=== PATIENT | female | born 1985 | race American Indian/Alaskan Native ===

== ENCOUNTER 2017-07-16 16:36 | Emergency (ER) | payer MEDICAID ==
[2017-07-16 17:06] VITALS: RESP 16
[2017-07-16 17:07] VITALS: BMI 24.0
[2017-07-16 17:10] VITALS: TEMP 97.8
--- NOTE | 2017-07-16 17:21 | ED PDOC ---
Arrival/HPI - General Chief Complaint: Palpitations Time Seen by Provider: 07/16/17 17:16 Historian: Patient - History of Present Illness Narrative History of Present Illness (Text): 07/16/17 17:14 A 31 year old female, with no significant past medical history, presents to the emergency department complaining of palpitations s/p dental procedure by dentist. Patient reports towards end of procedure, began experiencing severe palpitations. Patient denies any fever/chills/sweats, chest pain, shortness of breath, diaphoresis, LOC, dizziness/lightheadedness, nausea, vomiting, or any other medical complaints at this time. pt is here for further eval PCP: Dr Mtathews Family hx: no family history of sudden no one in family requiring pacemaker/defibrillator at young age no acute DE in family less than 50 years of age. Time/Duration: Prior to Arrival Symptom Onset: Sudden Symptom Course: Improving Activities at Onset: Rest Context: Other (dental office) Past Medical History - Provider Review Nursing Documentation Reviewed: Yes - Travel History Have you recently traveled outside [place] w/in the past 3 mons?: No - Past History Past History: No Previous - Infectious Disease Hx of Infectious Diseases: None - Tetanus Immunization Tetanus Immunization: Unknown - Reproductive Menopause: No Currently : Unknown - Past Medical History Past Medical History: No Previous - Psychiatric Hx Substance Use: No Family/Social History - Physician Review Nursing Documentation Reviewed: Yes Family/Social History: No Known Family HX Smoking Status: Former Smoker Hx Alcohol Use: Yes Frequency of alcohol use: Socially Hx Substance Use: No Hx Substance Use Treatment: No Allergies/Home Meds Allergies/Adverse Reactions: Allergies No Known Allergies Allergy (Unverified 07/16/17 17:17) Review of Systems - Physician Review All systems were reviewed & negative as marked: Yes - Review of Systems Constitutional: absent: Fevers Eyes: Normal ENT: Normal Respiratory: absent: SOB Cardiovascular: Palpitations. absent: Chest Pain Gastrointestinal: absent: Nausea, Vomiting Genitourinary Female: Normal Musculoskeletal: Normal Skin: Normal Neurological: absent: Dizziness, Other (no LOC/lightheadedness) Endocrine: absent: Diaphoresis Hemo/Lymphatic: Normal Psychiatric: Normal Physical Exam Vital Signs Reviewed: Yes Vital Signs Temp Pulse Resp BP Pulse Ox 07/16/17 17:49 90 16 140/86 98 07/16/17 17:06 97.8 F 93 H 16 146/83 99 07/16/17 17:05 93 H 16 146/83 99 Temperature: Afebrile Blood Pressure: Hypertensive Pulse: Regular Respiratory Rate: Normal Appearance: Positive for: Well-Appearing, Non-Toxic, Uncomfortable, Other (alert /awake; GCS = 15, oriented x 3, uncomfortable, resting in bed, cooperative, NAD) Pain Distress: None Mental Status: Positive for: Alert and Oriented X 3 - Systems Exam Head: Present: Atraumatic, Normocephalic Pupils: Present: PERRL, Other (no nystagmus, no ) Extroacular Muscles: Present: EOMI Conjunctiva: Present: Normal Ears: Present: Normal Mouth: Present: Other (dry oral mucosa, right dental procedure with dry blood noted; no exudate/lesions/discharge noted, uvula/tongue are midline, no dysphonia) Pharnyx: Present: Normal Nose (External): Present: Atraumatic Nose (Internal): Present: Normal Inspection Neck: Present: Normal Range of Motion, Trachea Midline, Other (no step off, no nuchal rigidity, no meningeal signs, intact ROM). No: Meningeal Signs, MIDLINE TENDERNESS Respiratory/Chest: Present: Clear to Auscultation, Good Air Exchange, Other ( CTA b/l, no w/r/r, no accessory muscle use noted, no tachypenia). No: Respiratory Distress, Accessory Muscle Use Cardiovascular: Present: Regular Rate and Rhythm, Normal S1, S2. No: Murmurs Abdomen: Present: Normal Bowel Sounds, Other (well nourished female, no focal tenderness, no masses/rebound/guarding/rigidity, no bardales's sign, no mcburney' s point tenderness). No: Tenderness, Distention, Peritoneal Signs Back: Present: Normal Inspection, Other (no midline tenderness). No: CVA Tenderness, Midline Tenderness Upper Extremity: Present: Normal Inspection, Normal ROM, NORMAL PULSES, Neurovascularly Intact, Capillary Refill < 2s. No: Cyanosis, Edema Lower Extremity: Present: Normal Inspection, NORMAL PULSES, Normal ROM, Neurovascularly Intact. No: Edema Neurological: Present: GCS=15, CN II-XII Intact, Speech Normal Skin: Present: Warm, Dry, Normal Color, Other (cap refill < 1sec, no ulcerations , no petechiae, no rashes). No: Rashes Psychiatric: Present: Alert, Oriented x 3, Normal Insight, Normal Concentration Medical Decision Making ED Course and Treatment: 07/16/17 17:10 Impression: palpitations i have consider all the differential diagnosis regarding pt's chief medical complaints/clinical findings, including but are not limited to: palpitations s/ p dental procedure A/P: palpitations - labs - ekg - supportive care - observe/reevaluation 07/16/17 17:15 I Spoke to the dentists, Dr Alejo (?), pt was given 1.7 cc x 3 episodes of lidocaine with epi for anesthesia during dental procedure; towards the end of the procedure, pt felt her symptoms of severe palpitations ~ 4pm; no other complaints noted; NO rashes/dysphonia/stridor noted 07/16/17 18:05 pt is currently comfortable pt is not in any distress pt denied palpitations noted 07/16/17 18:32 pt is doing well pt is made aware of her medical results pt is encouraged no caffiene products pt is encouraged soft/liquid diet for now until directed by dentists pt will f/u as directed pt will be discharged home Re-evaluation Time: 18:05 Reassessment Condition: Improved - Lab Interpretations Narrative Lab Interpretation (Text): 07/16/17 18:06 pt refused CBC currently I have reviewed the lab results: Yes Interpretation: All labs normal (slightly low FS) - EKG Interpretation EKG Interpretation (Text): 07/16/17 18:06 NSR at 85 bpm, normal axis, no ectopy, inverted T in leads V1, no st changes, NORMAL EKG otherwise; no old ekg to compare with Interpreted by ED Physician: Yes Type: 12 lead EKG Comparison: No previous EKG avail. - Medication Orders Current Medication Orders: Discontinued Medications Acetaminophen (Tylenol 325mg Tab) 650 mg PO STAT STA Stop: 07/16/17 18:04 Last Admin: 07/16/17 18:30 Dose: 650 mg MAR Pain/Vitals Document 07/16/17 18:30 MS (Rec: 07/16/17 18:30 MS [id number]) Pain Reassessment Is This A Pain ReAssessment? No Presence of Pain Presence of Pain Yes Pain Scale Used Pain Scale Used Numeric Location Pain Location Body Site Jaw Intensity 9 Codeine Sulfate (Codeine) 30 mg PO ONCE ONE Stop: 07/16/17 18:02 Last Admin: 07/16/17 18:28 Dose: 30 mg MATT Pain Assessment Document 07/16/17 18:28 MS (Rec: 07/16/17 18:30 MS [id number]) Pain Reassessment Is this a pain reassessment? No Sleep Is patient sleeping during reassessment? No Presence of Pain Presence of Pain Yes Pain Scale Used Pain Scale Used Numeric Location Pain Location Body Site Jaw Description Description Constant Intensity of Pain at present 9 Pain Behavior Moaning Facial Grimacing - Scribe Statement The provider has reviewed the documentation as recorded by the Yareli Rogers Provider Scribe Attestation: All medical record entries made by the Scribe were at my direction and personally dictated by me. I have reviewed the chart and agree that the record accurately reflects my personal performance of the history, physical exam, medical decision making, and the department course for this patient. I have also personally directed, reviewed, and agree with the discharge instructions and disposition. Disposition/Present on Arrival - Present on Arrival Any Indicators Present on Arrival: No History of DVT/PE: No History of Uncontrolled Diabetes: No Urinary Catheter: No History of Decub. Ulcer: No History Surgical Site Infection Following: None - Disposition Have Diagnosis and Disposition been Completed?: Yes Diagnosis: Palpitations, Adverse drug reaction Disposition: HOME/ ROUTINE Disposition Time: 18:30 Patient Plan: Discharge Patient Problems: Current Active Problems Problem Status Onset Palpitations Acute Condition: STABLE Discharge Instructions (ExitCare): Palpitations, Adverse Drug Reactions, Adult (DC) Print Language: BURKIN[place] Additional Instructions: Make sure to see your doctor in 1-2 days DRINK PLENTY OF FLUIDS AVOID caffiene products for now take your medications as prescribed recommend soft diet/liquid diet for now until your dentists suggests otherwise RETURN TO ED IF worse pain, cant breath, persistent vomiting, high fever >101- 102 for hours, altered behavior, slurr speech, facial changes, focal weakness ( arm/leg or both), unable to urinate, heavy/persistent bleeding, passing out, chest pain, or other medical emergencies YOU MIGHT BE SENSITIVE TO LIDOCAINE with EPINEPHRINE, please let your doctor/ dentists know in the future Prescriptions: Acetaminophen/Codeine NO 2 [Tylenol/Cod 300 MG-15 MG] 1 tab PO TID PRN #10 tab PRN Reason: Pain, Moderate (4-7) Referrals: Eligio Matthews Jr., MD [Primary Care Provider] - Follow up with primary Forms: [email or web address] ([email or web address]), WORK NOTE
[2017-07-16 17:53] VITALS: BP 140/86; PULSE 90; O2SAT 98
--- NOTE | 2017-07-17 08:05 | CARD ---
APPROVED REPORT EKG Measurement Heart [id number] <Conclusion> Normal sinus rhythm with sinus arrhythmia Normal ECG
== END 2017-07-16 18:30 | disposition home or self-care (01) ==
LOC: ED 16:36
DX: R00.2 Palpitations (principal); T41.3X5A Adverse effect of local anesthetics, initial encounter; Y92.531 Health care provider office as the place of occurrence of the external cause; Z87.891 Personal history of nicotine dependence